=== PATIENT | male | born 2000 | race Caucasian/White ===

== ENCOUNTER 2020-01-25 19:33 | Emergency (ER) | payer SELFPAY ==
[~2020-01-25] VITALS: Ht 177.8 cm; Wt 98.0 kg
[~2020-01-25 19:33] MED LIST: OMEP-110 PO; SUCR1TAB PO
[2020-01-25 19:39] VITALS: BP 123/73
--- NOTE | 2020-01-25 20:21 | NUR ---
PT TO BE DC'D PER ERMD, HOLD INVALIDATED BY ERP.
--- NOTE | 2020-01-25 20:26 | NUR ---
PT AMBULATED OUT WITH STEADY GAIT PRIOR TO RECIEVING DC INSTRUCTIONS, ERMD INFORMED
== END 2020-01-25 20:30 | disposition home or self-care (01) ==
LOC: ED 20:00
DX: F32.0 Major depressive disorder, single episode, mild (principal); K21.9 Gastro-esophageal reflux disease without esophagitis; Z72.9 Problem related to lifestyle, unspecified
CPT/HCPCS: 99284